=== PATIENT | male | born 1990 | race Caucasian/White ===

== ENCOUNTER 2017-08-04 20:47 | Emergency (ER) | payer OTHER ==
[~2017-08-04] VITALS: Ht 193 cm; Wt 92.1 kg
[2017-08-04 21:40] VITALS: Ht 193 cm; Wt 92.1 kg
[2017-08-05 00:09] VITALS: BP 135/84
== END 2017-08-05 00:13 | disposition home or self-care (01) ==
LOC: ED 20:47
DX: M25.561 Pain in right knee (principal); W50.2XXA Accidental twist by another person, initial encounter; Y93.67 Activity, basketball; Y92.89 Other specified places as the place of occurrence of the external cause; Y99.8 Other external cause status

== ENCOUNTER 2019-12-07 11:01 | Emergency (ER) | payer OTHER ==
[~2019-12-07] VITALS: Ht 190.5 cm; Wt 94.8 kg
[2019-12-07 11:13] VITALS: Ht 190.5 cm; Wt 94.8 kg
[2019-12-07 13:11] VITALS: BP 121/67
[2019-12-07 13:11] LABS: microscopic required? NO
[2019-12-07 14:06] LABS: urine erythrocyte NEGATIVE (NEGATIVE)
== END 2019-12-07 13:11 | disposition home or self-care (01) ==
LOC: ED 11:01
PROVIDERS: Emergency Medicine
DX: M54.5 Low back pain (principal); G89.29 Other chronic pain
CPT/HCPCS: J1100; J1885; Q0092